=== PATIENT | male | born 1995 | race Caucasian/White ===

== ENCOUNTER 2019-12-16 12:00 | Emergency (ER) | payer BC, OTHER ==
[~2019-12-16] VITALS: Ht 175.3 cm; Wt 65.8 kg
[2019-12-16 15:41] VITALS: BP 150/95
== END 2019-12-16 16:09 | disposition home or self-care (01) ==
LOC: ER 12:00
DX: S43.102A Unspecified dislocation of left acromioclavicular joint, initial encounter (principal); F12.10 Cannabis abuse, uncomplicated; V00.311A Fall from snowboard, initial encounter; Y93.23 Activity, snow (alpine) (downhill) skiing, snowboarding, sledding, tobogganing and snow tubing; Y99.8 Other external cause status; Y92.89 Other specified places as the place of occurrence of the external cause
CPT/HCPCS: 73030

== ENCOUNTER 2021-05-13 06:44 | Emergency (ER) | payer SELFPAY ==
[~2021-05-13] VITALS: Ht 170.2 cm; Wt 59.0 kg
[2021-05-13 06:45] VITALS: BP 151/91
[2021-05-13] MEDS ORDERED: ACETAMINOPHEN 500 MG TAB PO ONE (08:15)
== END 2021-05-13 09:29 | disposition home or self-care (01) ==
LOC: ER 06:44
DX: G44.009 Cluster headache syndrome, unspecified, not intractable (principal); F12.10 Cannabis abuse, uncomplicated
CPT/HCPCS: 70450

== ENCOUNTER 2024-01-07 18:36 | Emergency (ER) | payer BC, MEDICAID ==
[~2024-01-07] VITALS: Ht 175.3 cm; Wt 150.0 kg
[2024-01-07 18:48] VITALS: BP 152/102; PULSE 99; RESP 18; O2SAT 98
[2024-01-07 19:12] LABS: Basophils # (auto) 0.1 10 ^3/uL (0-0.2); Basophils % (auto) 0.4 % (0.0-2.0); Eosinophils # (auto) 0 10 ^3/uL (0-0.8); Eosinophils % (auto) 0.2 % (0.0-7.0); Hematocrit 46.4 % (41.0-53.0); Hemoglobin 15.8 g/dL (13.5-17.5); Lymphocytes # (auto) 2.5 10 ^3/uL (0.4-5.4); Lymphocytes % (auto) 20.9 % (10.0-50.0); Mean Corpuscular Hemoglobin 33.5 pg (28.0-32.0); Mean Corpuscular Volume 98.5 fL (80.0-100.0); Monocytes # (auto) 0.4 10 ^3/uL (0-1.3); Monocytes % (auto) 3.7 % (0.0-12.0); Neutrophils # (auto) 9.1 10 ^3/uL (1.6-8.6); Neutrophils % (auto) 74.8 % (37.0-80.0); Nucleated Red Blood Cells % 0.1 %; Red Blood Cells 4.72 10^6/uL (4.5-5.90); Red Cell Distribution Width 13.7 % (11.8-14.3); White Blood Cell 12.2 10^3/uL (4.4-10.8)
[2024-01-07 19:36] LABS: Chloride 107 mmol/L (98-107); Potassium 3.3 mmol/L (3.5-5.1); Sodium 137 mmol/L (136-145)
[2024-01-07 19:37] LABS: Anion Gap 4 (5-15); Calcium 9.9 mg/dL (8.5-10.1); Carbon Dioxide 26 mmol/L (20-30)
[2024-01-07 19:42] LABS: Blood Alcohol < 3.0 mg/dL (<10); Glucose 112 mg/dL (74-106)
[2024-01-07 19:47] LABS: BUN/Creatinine Ratio 6.8 (10.0-20.0); Blood Urea Nitrogen < 5 mg/dL (9-23)
[2024-01-07 20:48] LABS: Urine Bacteria FEW /hpf (None Seen); Urine Blood Negative /uL (Negative); Urine Clarity Clear (Clear); Urine Color Yellow (Yellow); Urine Protein, UAD Negative (Negative); Urine Specific Gravity 1.006 (1.001-1.035); Urine WBC <1 /hpf (0 - 3); Urine pH 6.5 (5.0-8.0)
[2024-01-07 20:57] LABS: Amphetamine Screen, Urine Neg (NEGATIVE); Barbiturate Scree,Urine Neg (NEGATIVE); Benzodiazephine Screen, Urine Neg (NEGATIVE); Cocaine Screen, Urine Neg (NEGATIVE); Opiate Scree,Urine Neg (NEGATIVE); Phencyclidine Screen, Urine Neg (NEGATIVE)
[2024-01-07 21:35] LABS: Cannabinoid Screen, Urine Pos (NEGATIVE)
[2024-01-07] MEDS: ACETAMINOPHEN 500 MG TAB PO ONE (23:30)
[2024-01-08] MEDS ORDERED: OLAN1TAB7 PO (01:46)
[2024-01-08] MEDS: OLANZapine 5 MG TAB PO ONE (02:51)
== END 2024-01-08 02:54 | disposition home or self-care (01) ==
LOC: ER 18:36 → EDBD 18:36 → ER 01-08 02:53
DX: F12.10 Cannabis abuse, uncomplicated (principal); F29 Unspecified psychosis not due to a substance or known physiological condition; Z79.899 Other long term (current) drug therapy
CPT/HCPCS: 36415; 80048; 80307; 80320; 81001; 83880; 85025; 93005